=== PATIENT | female | born 1970 | race Two or more races ===

== ENCOUNTER 2023-11-27 11:17 | Emergency (ER) | payer OTHER ==
[~2023-11-27] VITALS: Ht 157.5 cm; Wt 113.3 kg
[2023-11-27 13:17] LABS: Urine Bacteria FEW /hpf (None Seen); Urine Blood Negative /uL (Negative); Urine Clarity Clear (Clear); Urine Color Yellow (Yellow); Urine Protein, UAD Negative (Negative); Urine Specific Gravity 1.016 (1.001-1.035); Urine WBC 1 /hpf (0 - 5); Urine pH 6.5 (5.0-8.0)
[2023-11-27 14:15] VITALS: BP 129/78; PULSE 90; RESP 18; O2SAT 96
[2023-11-27] MEDS ORDERED: CIPR500T4 PO (14:20)
[2023-11-27] MEDS ORDERED: FLUC150T38 PO (14:20)
[2023-11-27] MEDS: PHENAZOPYRIDINE HCL 100 MG TAB PO ONE (14:46)
[2023-11-27 14:47] VITALS: TEMP 98.1
[2023-11-27] MEDS: ACETAMINOPHEN 500 MG TAB PO ONE (14:47)
[2023-11-27] MEDS: cefTRIAXone SOD 1,000 MG VL IM ONE (14:47)
== END 2023-11-27 15:00 | disposition home or self-care (01) ==
LOC: ER 11:17
DX: N39.0 Urinary tract infection, site not specified (principal)
CPT/HCPCS: 81001; 87086; 96372; 99283; J0696

== ENCOUNTER 2024-04-13 10:56 | Emergency (ER) | payer OTHER ==
[~2024-04-13] VITALS: Ht 157.5 cm; Wt 112.6 kg
[~2024-04-13 10:56] MED LIST: CIPR500T4 PO; FLUC150T38 PO
[2024-04-13 11:32] VITALS: BP 128/73; PULSE 84; RESP 16; TEMP 98.1; O2SAT 93
[2024-04-13 11:44] LABS: Urine Bacteria FEW /hpf (None Seen); Urine Blood Negative /uL (Negative); Urine Budding Yeast OCCASIONAL /hpf (None Seen); Urine Clarity Clear (Clear); Urine Protein, UAD Negative (Negative); Urine Specific Gravity 1.005 (1.001-1.035); Urine Urobilinogen Normal (Negative); Urine WBC 4 /hpf (0 - 5); Urine pH 6.5 (5.0-9.0)
[2024-04-13 11:51] LABS: Urine Color STRAW (Yellow)
[2024-04-13] MEDS ORDERED: NAP500T PO (15:11)
== END 2024-04-13 15:12 | disposition home or self-care (01) ==
LOC: ER 10:56
DX: D25.9 Leiomyoma of uterus, unspecified (principal); Z88.1 Allergy status to other antibiotic agents; Z88.6 Allergy status to analgesic agent
CPT/HCPCS: 76830; 76856; 81001